=== PATIENT | male | born 1990 ===

== ENCOUNTER 2017-11-14 21:43 | Inpatient (IN) | payer MEDICAID ==
[2017-11-15] MEDS ORDERED: Sodium Chloride 0.9% 1,000 ML IV SCH (00:45)
--- NOTE | 2017-11-15 01:17 | ED PDOC ---
HPI: SOB/CHF/COPD Time Seen by Provider: 11/15/17 00:28 Chief Complaint (Nursing): Shortness Of Breath Chief Complaint (Provider): Fever and Shortness of Breath History Per: Patient History/Exam Limitations: no limitations Onset/Duration Of Symptoms: Days (4 days ago) Current Symptoms Are (Timing): Still Present Additional Complaint(s): 27 yo male presents to the ED complaining of fever, cough productive of brown sputum, chest pain with coughing, and shortness of breath, onset of 4 days ago. Patient reports of no know sick contacts or any recent travel, and also reports of non bloody, non bilious vomiting all day today. Patient also reports that he visited [facility] earlier today, but hasn't been able to take the medications prescribed because of all the vomiting he has been experiencing. Past Medical History Reviewed: Historical Data, Nursing Documentation, Vital Signs Vital Signs: Last Vital Signs Temp 101.4 F H 11/15/17 05:11 Pulse 109 H 11/15/17 04:57 Resp 16 11/15/17 04:57 BP 105/55 L 11/15/17 04:57 Pulse Ox 96 11/15/17 04:57 - Medical History PMH: No Chronic Diseases - Surgical History Surgical History: No Surg Hx - Family History Family History: States: Unknown Family Hx - Social History Current smoker - smoking cessation education provided: Yes Ex-Smoker (has not smoked in the last 12 months): No Alcohol: None Drugs: Denies - Immunization History Hx Tetanus Toxoid Vaccination: No Hx Influenza Vaccination: No Hx Pneumococcal Vaccination: No - Home Medications Home Medications: Ambulatory Orders Medication Instructions Recorded Acetaminophen [Tylenol 325mg tab] 650 mg PO Q4 PRN 11/15/17 Ibuprofen [Advil] 400 mg PO Q6 PRN 11/15/17 - Allergies Allergies/Adverse Reactions: Allergies Allergy/AdvReac Type Severity Reaction Status Date / Time No Known Allergies Allergy Verified 11/14/17 22:00 Review of Systems ROS Statement: Except As Marked, All Systems Reviewed And Found Negative Constitutional: Positive for: Fever Cardiovascular: Positive for: Chest Pain (when coughing) Respiratory: Positive for: Cough (productive of brown sputum), Shortness of Breath Gastrointestinal: Positive for: Vomiting. Negative for: Hematemesis Physical Exam - Reviewed Nursing Documentation Reviewed: Yes Vital Signs Reviewed: Yes - Physical Exam Appears: Positive for: Well, Non-toxic, No Acute Distress Head Exam: Positive for: ATRAUMATIC, NORMAL INSPECTION, NORMOCEPHALIC Skin: Positive for: Normal Color, Warm (to touch) Eye Exam: Positive for: EOMI, Normal appearance, PERRL ENT: Positive for: Normal ENT Inspection Neck: Positive for: Normal, Painless ROM, Supple Cardiovascular/Chest: Positive for: Regular Rate, Rhythm. Negative for: Murmur Respiratory: Positive for: Normal Breath Sounds. Negative for: Respiratory Distress Gastrointestinal/Abdominal: Positive for: Normal Exam, Soft. Negative for: Tenderness Back: Positive for: Normal Inspection Extremity: Positive for: Normal ROM. Negative for: Pedal Edema, Deformity Neurologic/Psych: Positive for: Alert, Oriented. Negative for: Motor/Sensory Deficits - Laboratory Results Result Diagrams: 11/15/17 00:57 11/15/17 00:57 - ECG O2 Sat by Pulse Oximetry: 93 (RA) Pulse Ox Interpretation: Normal Medical Decision Making Medical Decision Making: Time: --22:06 Impression: --Influenza vs. Influenza like illness Plan: --Labs --Lactic ACid --chest X-ray --Acetaminophen 975 mg PO --Toradol 30mg IVP --IV fluids --Zofran Reassess Patient's fever still continues to rise despite anti-pyretic. Patient has bandemia and significant PNA on xray. Dr. Whitfield states his census is capped and cannot take any more patients. Dr. Riley agrees to accept patient. Patient meeting sepsis criteria at this time. Scribe Attestation: Documented by Ralph Degroot acting as a scribe for Blake Mcknight MD. Provider Attestation: All medical record entries made by the Scribe were at my direction and personally dictated by me. I have reviewed the chart and agree that the record accurately reflects my personal performance of the history, physical exam, medical decision making, and the department course for this patient. I have also personally directed, reviewed, and agree with the discharge instructions and disposition. Disposition - Clinical Impression Clinical Impression: Pneumonia, Sepsis - Disposition Disposition Time: 05:00 Condition: SERIOUS
[2017-11-15] MEDS ORDERED: cefTRIAXone 2 GM in Sodium Chloride 0.9% 100 ML IVPB STA (01:30)
[2017-11-15] MEDS ORDERED: Azithromycin 500 MG in Sodium Chloride 0.9% 250 ML IVPB STA (01:30)
[2017-11-15 01:37] LABS: BASO % 0.3 % (0.0-2.0); HEMOGLOBIN 14.6 g/dL (12.0-18.0); LYMPH # 1.1 K/uL (1.0-4.3); LYMPH % 9.5 % (20.0-40.0); MEAN CELL VOLUME 83.5 fl (80.0-94.0); MEAN CORPUSCULAR HEMOGLOBIN 27.8 pg (27.0-31.0); MEAN CORPUSCULAR HGB CONC 33.3 g/dL (33.0-37.0); MEAN PLATELET VOLUME 8.1 fl (7.2-11.7); MONO # 0.4 K/uL (0.0-0.8); MONO % 3.8 % (0.0-10.0); NEUT # 9.9 K/uL (1.8-7.0); NEUT % 86.4 % (50.0-75.0); NRBC % 0.2 % (0.0-0.0); PLATELET COUNT 205 K/uL (130-400); RBC 5.24 Mil/uL (4.40-5.90); RED CELL DISTRIBUTION WIDTH 12.7 % (11.5-14.5); WHITE BLOOD COUNT 11.5 K/uL (4.8-10.8)
[2017-11-15 01:49] LABS: BLOOD UREA NITROGEN 11 mg/dl (9-20); CALCIUM 8.5 mg/dL (8.4-10.2); GFR AFRICAN-AMERICAN > 60; GFR NON-AFRICAN AMERICAN > 60
[2017-11-15 04:24] LABS: ANISOCYTOSIS SLIGHT; BANDS 15 % (0-2); LYMPHOCYTE 13 % (20-50); MONOCYTE 3 % (0-10); NEUTROPHIL 67 % (42-75); OVALOCYTES SLIGHT; PLATELET ESTIMATE NORMAL (NORMAL); REACTIVE LYMPHOCYTES 2 % (0-0); TOTAL CELLS COUNTED 100
[2017-11-15 04:25] LABS: TEARDROP CELLS SLIGHT
[2017-11-15] MEDS ORDERED: Sodium Chloride 0.9% 1,000 ML IV STA (04:33)
[2017-11-15] MEDS ORDERED: Lactated Ringer's 1,000 ML IV SCH (04:45)
[2017-11-15 05:15] LABS: VENOUS BLOOD GAS BASE EXCESS 1.7 mmol/L (0.0-2.0); VENOUS BLOOD GAS PCO2 32 mmHg (40-60); VENOUS BLOOD GAS PO2 41 mm/Hg (30-55); VENOUS BLOOD PH 7.49 (7.32-7.43)
--- NOTE | 2017-11-15 06:26 | CP.PCM.HP ---
History of Present Illness - History of Present Illness History of Present Illness: PMD: None Chief [id number]: Fever/Cough HPI: 27 years old male with no significant medical hx comes with 5 days of Fever , Coughing with Purulent brownish sputum and chest pain, SOB along with nausea and vomiting body aches and poor appetite. He was seen at the [facility] ED one say before this admission but was not able to take the medication prescribed because of the vomiting. In the ED his Temperature was 103F. PMH: No chronic disease PSH: No Surg Hx SH: Smokes 1/2 PPD; No ETOH; Uses [employer]; works in a [employer]; Live with the Family. Allergies: NKDA Medication: Reviwed Present on Admission - Present on Admission Any Indicators Present on Admission: No History of DVT/PE: No History of Uncontrolled Diabetes: No Urinary Catheter: No Decubitus Ulcer Present: No Review of Systems - Constitutional Constitutional: Anorexia, Chills, Fatigue, Fever, Weakness - EENT Eyes: absent: Diplopia, Floaters, Requires Corrective Lenses, Sees Flashes Ears: absent: Decreased Hearing, Ear Discharge, Ear Pain, Tinnitus Nose/Mouth/Throat: absent: Epistaxis, Nasal Congestion, Nasal Discharge, Sinus Pain, Sinus Pressure - Cardiovascular Cardiovascular: Chest Pain, Dyspnea. absent: Leg Edema - Respiratory Respiratory: Cough, Dyspnea, Chest Congestion. absent: Hemoptysis, Wheezing - Gastrointestinal Gastrointestinal: Nausea, Vomiting. absent: Abdominal Pain, Constipation, Diarrhea - Genitourinary Genitourinary: absent: Dysuria, Flank Pain, Hematuria, Urinary Frequency - Musculoskeletal Musculoskeletal: absent: Abnormal Gait, Back Pain, Neck Pain - Integumentary Integumentary: absent: Pruritus, Rash, Skin Ulcer, Sores, Striae, Swelling - Neurological Neurological: Weakness. absent: Confusion, Dizziness, Focal Weakness, Headaches - Psychiatric Psychiatric: absent: Anxiety, Depression, Panic Attacks - Endocrine Endocrine: absent: Palpitations, Polydipsia, Polyphagia, Polyuria - Hematologic/Lymphatic Hematologic: absent: Easy Bleeding, Easy Bruising Past Patient History - Past Medical History & Family History Past Medical History?: No - Past Social History Smoking Status: Heavy Smoker > 10 Cigarettes Daily Chewing Tobacco Use: No Cigar Use: No Alcohol: None Drugs: Cannabis Home Situation {Lives}: With Family - CARDIAC Hx Cardiac Disorders: No - PULMONARY Hx Respiratory Disorders: No - NEUROLOGICAL Hx Neurological Disorder: No - HEENT Hx HEENT Problems: No - RENAL Hx Chronic Kidney Disease: No - ENDOCRINE/METABOLIC Hx Endocrine Disorders: No - HEMATOLOGICAL/ONCOLOGICAL Hx Blood Disorders: No - INTEGUMENTARY Hx Dermatological Problems: No - MUSCULOSKELETAL/RHEUMATOLOGICAL Hx Musculoskeletal Disorders: No - GASTROINTESTINAL Hx Gastrointestinal Disorders: No - GENITOURINARY/GYNECOLOGICAL Hx Genitourinary Disorders: No - PSYCHIATRIC Hx Psychophysiologic Disorder: No Hx Substance Use: No - SURGICAL HISTORY Hx Surgeries: No - ANESTHESIA Hx Anesthesia: No Meds Allergies/Adverse Reactions: Allergies Allergy/AdvReac Type Severity Reaction Status Date / Time No Known Allergies Allergy Verified 11/14/17 22:00 Physical Exam - Constitutional Appears: No Acute Distress - Head Exam Head Exam: ATRAUMATIC, NORMAL INSPECTION, NORMOCEPHALIC - Eye Exam Eye Exam: EOMI, Normal appearance Pupil Exam: NORMAL ACCOMODATION, PERRL - ENT Exam ENT Exam: Mucous Membranes Moist, Normal Exam, Normal External Ear Exam - Neck Exam Neck exam: Positive for: Full Rom, Normal Inspection. Negative for: Lymphadenopathy, Tenderness - Respiratory Exam Additional comments: Rales in left lung base and minimal at right base. Tubular breath sound at upper right lung No wheezes nor rhonchi - Cardiovascular Exam Cardiovascular Exam: REGULAR RHYTHM, RRR, +S1, +S2. absent: Gallop, JVD - GI/Abdominal Exam GI & Abdominal Exam: Normal Bowel Sounds, Soft. absent: Mass, Organomegaly, Tenderness - Rectal Exam Rectal Exam: Deferred - Extremities Exam Extremities exam: Positive for: full ROM, normal inspection. Negative for: calf tenderness, pedal edema - Back Exam Back exam: NORMAL INSPECTION. absent: CVA tenderness (R) - Neurological Exam Neurological exam: Alert, CN II-XII Intact, Oriented x3, Reflexes Normal - Psychiatric Exam Psychiatric exam: Normal Affect, Normal Mood - Skin Skin Exam: Dry, Intact, Normal Color, Warm Results - Vital Signs Recent Vital Signs: Last Vital Signs Temp 100.3 F H 11/15/17 06:21 Pulse 109 H 11/15/17 04:57 Resp 16 11/15/17 04:57 BP 105/55 L 11/15/17 04:57 Pulse Ox 93 L 11/15/17 06:24 - Labs Result Diagrams: 11/15/17 00:57 11/15/17 00:57 Labs: Laboratory Results - last 24 hr 11/15/17 11/15/17 11/15/17 00:57 00:57 01:10 WBC 11.5 H RBC 5.24 Hgb 14.6 Hct 43.8 MCV 83.5 MCH 27.8 MCHC 33.3 RDW 12.7 Plt Count 205 MPV 8.1 Neut % (Auto) 86.4 H Lymph % (Auto) 9.5 L [place] % (Auto) 3.8 Eos % (Auto) 0.0 Baso % (Auto) 0.3 Neut # (Auto) 9.9 H Lymph # (Auto) 1.1 [place] # (Auto) 0.4 Eos # (Auto) 0.0 Baso # (Auto) 0.0 Neutrophils % (Manual) 67 Band Neutrophils % 15 H* Lymphocytes % (Manual) 13 L Reactive Lymphs % 2 H Monocytes % (Manual) 3 Platelet Estimate Normal Anisocytosis (manual) Slight Tear Drop Cells Slight Ovalocytes Slight pO2 VBG pH VBG pCO2 VBG HCO3 VBG Total CO2 VBG O2 Sat (Calc) VBG Base Excess VBG Potassium Glucose Lactate FiO2 Sodium 138 Potassium 3.7 Chloride 101 Carbon Dioxide 26 Anion Gap 15 BUN 11 Creatinine 0.8 Est GFR ( Amer) > 60 Est GFR (Non-Af Amer) > 60 Random Glucose 98 Lactic Acid 1.2 Calcium 8.5 Venous Blood Potassium 11/15/17 05:10 WBC RBC Hgb Hct MCV MCH MCHC RDW Plt Count MPV Neut % (Auto) Lymph % (Auto) [place] % (Auto) Eos % (Auto) Baso % (Auto) Neut # (Auto) Lymph # (Auto) [place] # (Auto) Eos # (Auto) Baso # (Auto) Neutrophils % (Manual) Band Neutrophils % Lymphocytes % (Manual) Reactive Lymphs % Monocytes % (Manual) Platelet Estimate Anisocytosis (manual) Tear Drop Cells Ovalocytes pO2 41 VBG pH 7.49 H VBG pCO2 32 L VBG HCO3 25.8 VBG Total CO2 25.4 VBG O2 Sat (Calc) 87.5 H VBG Base Excess 1.7 VBG Potassium 3.4 L Glucose 143 H Lactate 1.5 FiO2 21.0 Sodium 133.0 Potassium Chloride 102.0 Carbon Dioxide Anion Gap BUN Creatinine Est GFR ( Amer) Est GFR (Non-Af Amer) Random Glucose Lactic Acid Calcium Venous Blood Potassium 3.4 L - Imaging and Cardiology Chest x-ray Status: Image reviewed by me Additional comment: Right upper lung mass in form of a ball Right cardiophrenic infiltrate Assessment & Plan - Assessment and Plan (Free Text) Assessment: #. Pneumonia #. Sepsis Plan: 27 years old male comes with 5 days of Fever, Coughing with Purulent brownish sputum and chest pain, SOB along with nausea and vomiting body aches and poor appetite. In the ED his Temperature was 103F. #. Pneumonia with an acute unset. CAP. TB less likely because of the severity of the symptoms acutely, Aspergillious more likely because of the Fungal Ball picture. - Consult Dr Hillman Pulmonary - CT of Chest with contrast - Sputun for C&S - Sputum For AFB x3 - Airborne Isolation until 3 AFB are negative - ESR - HIV a/b antibody - Quantiferon Gold - Azithromycin - Ceftriaxone #. Sepsis with Fever/Tachycardia/Left shift - Follow Blood Culture;Sputum cultures - Antibiotics #. DVT prophylaxis with Lovenox #. Code Status: Full - Date & Time Date: 11/15/17 Time: 06:26
[2017-11-15] MEDS ORDERED: Sodium Chloride 3% for Inhalation 4 ML VIAL.NEB IH PRN (07:24)
[2017-11-15] MEDS ORDERED: Sodium Chloride 0.9% 50 ML IV ONE (08:23)
[2017-11-15] MEDS ORDERED: Iohexol 300 100 ML IJ ONE (08:23)
--- NOTE | 2017-11-15 09:42 | RAD ---
HISTORY: r/o PNA COMPARISON: No prior. TECHNIQUE: Chest PA and lateral FINDINGS: LUNGS: Rounded opacity seen in the right upper lobe as well as right medial lung base and possibly left lower lobe. Findings most likely represent multifocal pneumonia. PLEURA: No significant pleural effusion identified. No pneumothorax apparent. CARDIOVASCULAR: Normal. OSSEOUS STRUCTURES: No significant abnormalities. VISUALIZED UPPER ABDOMEN: Normal. OTHER FINDINGS: None. IMPRESSION: Findings most consistent with multifocal pneumonia.
--- NOTE | 2017-11-15 10:19 | CT ---
PROCEDURE: CT chest dated 11/15/2017 HISTORY: Mass at right upper lung COMPARISON: Correlation made with concurrent chest radiograph 11/15/2017 at 0118 hours. TECHNIQUE: Contiguous axial images were obtained through the chest with intravenous contrast enhancement. Sagittal and coronal reconstructions were performed. IV contrast: 95 cc Omnipaque 300 contrast Radiation dose (DLP): 743.40 mGy-cm. This CT exam was performed using one or more of the following dose reduction techniques: Automated exposure control, adjustment of the mA and/or kV according to patient size, and/or use of iterative reconstruction technique. FINDINGS: LUNGS: Dense consolidation/infiltrate with air bronchograms seen in the right posterior lower lung field as well as right upper lobe. Smaller infiltrate changes seen in the left lung base and to a lesser degree right middle lobe. MEDIASTINUM: Heart size is upper limits of normal/borderline enlarged. No significant pericardial effusion. Several small to medium-sized mediastinal lymph nodes are present in the prevascular and paratracheal/pretracheal and subcarinal regions. . Central airways are midline and patent. No central endobronchial lesions. PLEURA: No pleural fluid. No pneumothorax. BONES: No fracture. No destructive lesion. UPPER ABDOMEN: Spleen is mildly enlarged measuring approximately 13.4 cm in AP dimension. The visualized along its inferior border though does appear borderline/mildly enlarged. OTHER FINDINGS: None. IMPRESSION: Dense consolidation/ upper lobe infiltrate seen in the right lower lobe, right upper lobe. There is a small infiltrate seen in the left lung base and early small infiltrate changes right middle lobe. Mild splenomegaly. Borderline/mild hepatomegaly.
[2017-11-15] MEDS: Potassium Chloride 10 MEQ in Dextrose 5%/0.9% NS 1,000 ML IV SCH ×2 (10:43→22:29)
[2017-11-15] MEDS: Enoxaparin 40 mg Syringe SC SCH (10:51)
[2017-11-15 11:46] LABS: BASO % 0.1 % (0.0-2.0); HEMOGLOBIN 13.5 g/dL (12.0-18.0); LYMPH % 10.7 % (20.0-40.0); MEAN CORPUSCULAR HEMOGLOBIN 28.2 pg (27.0-31.0); MEAN CORPUSCULAR HGB CONC 34.4 g/dL (33.0-37.0); MEAN PLATELET VOLUME 7.9 fl (7.2-11.7); MONO # 0.2 K/uL (0.0-0.8); MONO % 2.5 % (0.0-10.0); NEUT # 7.9 K/uL (1.8-7.0); NEUT % 86.7 % (50.0-75.0); NRBC % 0.1 % (0.0-0.0); RBC 4.8 Mil/uL (4.40-5.90); RED CELL DISTRIBUTION WIDTH 12.6 % (11.5-14.5); WHITE BLOOD COUNT 9.2 K/uL (4.8-10.8)
[2017-11-15 12:18] LABS: ALBUMIN 3.4 g/dL (3.5-5.0); ALT/SGPT 26 U/L (21-72); AST/SGOT 27 U/L (17-59); BLOOD UREA NITROGEN 10 mg/dl (9-20); CALCIUM 8.1 mg/dL (8.4-10.2); GFR AFRICAN-AMERICAN > 60; GFR NON-AFRICAN AMERICAN > 60
--- NOTE | 2017-11-15 12:51 | CP.PCM.PN ---
<Tyrone Bronson - Last Filed: 11/15/17 15:29> Subjective - Date & Time of Evaluation Date of Evaluation: 11/15/17 Time of Evaluation: 10:00 - Subjective Subjective: 27 y/o evaluated and examined by bedside. Pt reports feeling better, cough has decreased in frequency, aggravates with deep inspirations but still productive with brown sputum. Pt is hungry and desires to eat. 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 Objective - Vital Signs/Intake and Output Vital Signs (last 24 hours): Temp Pulse Resp BP Pulse Ox 99.8 F H 100 H 24 106/66 99 11/15/17 12:00 11/15/17 12:25 11/15/17 12:25 11/15/17 12:00 11/15/17 12:00 - Medications Medications: Current Medications Acetaminophen (Tylenol 325mg Tab) 650 mg PO Q4 PRN PRN Reason: Fever >100.4 F Acetaminophen (Tylenol 325mg Tab) 650 mg PO Q4 PRN PRN Reason: Pain, Mild (1-3) Enoxaparin Sodium (Lovenox) 40 mg SC DAILY [facility] PRN Reason: Protocol Last Admin: 11/15/17 10:51 Dose: 40 mg Sodium Chloride (Sodium Chloride 0.9%) 1,000 mls @ 1,000 mls/hr IV .Q1H [facility] Stop: 11/16/17 00:39 Last Admin: 11/15/17 01:02 Dose: 1,000 mls/hr Lactated Ringer's (Lactated Ringer's) 1,000 mls @ 1,000 mls/hr IV .Q1H [facility] Last Admin: 11/15/17 05:24 Dose: 1,000 mls/hr Ceftriaxone Sodium 1 gm/ (Sodium Chloride) 100 mls @ 100 mls/hr IVPB DAILY [facility] PRN Reason: Protocol Azithromycin 500 mg/ Sodium (Chloride) 250 mls @ 250 mls/hr IVPB DAILY [facility] PRN Reason: Protocol Potassium Chloride 10 meq/ (Dextrose/Sodium Chloride) 1,005 mls @ 125 mls/hr IV .Q8H3M [facility] Stop: 11/16/17 07:36 Last Admin: 11/15/17 10:43 Dose: 125 mls/hr Ibuprofen (Motrin Tab) 400 mg PO Q4 PRN PRN Reason: Pain, moderate (4-7) Ondansetron HCl (Zofran Inj) 4 mg IVP Q4 PRN PRN Reason: Nausea/Vomiting - Labs Labs: 11/15/17 11:33 11/15/17 11:33 - Constitutional Appears: Well, No Acute Distress - Head Exam Head Exam: ATRAUMATIC, NORMAL INSPECTION - Eye Exam Eye Exam: EOMI, Normal appearance - ENT Exam ENT Exam: Mucous Membranes Moist - Neck Exam Neck Exam: Full ROM. absent: Meningismus - Respiratory Exam Respiratory Exam: Decreased Breath Sounds (on bilateral lower west. ), NORMAL BREATHING PATTERN Additional comments: Presence of tubular sounds on RUL. - Cardiovascular Exam Cardiovascular Exam: REGULAR RHYTHM, +S1, +S2 - GI/Abdominal Exam GI & Abdominal Exam: Soft, Normal Bowel Sounds. absent: Guarding, Rigid, Tenderness - Neurological Exam Neurological Exam: Alert, Awake, Oriented x3 - Psychiatric Exam Psychiatric exam: Normal Mood Assessment and Plan - Assessment and Plan (Free Text) Assessment: 27 y/o M admitted for evaluation and management of multifocal pneumonia. Plan: 1. Acute pneumonia. - CAP, TB less likely, possible Aspergillious. - CT Chest showed dense consolidation in RUL and infiltrate in RLL, small infiltrate on LLL, and splenomegaly. - CXR findings more consistent with multifocal pneumonia. - Consult to Pulmonology, Dr Hillman. - Sputum For AFB x3 - Airborne Isolation until 3 AFB are negative - On IV Ceftriaxone and Azithromycin. - F/U ESR, HIV antibody, Quantiferon Gold, Blood CX, Aspergillus Ab. - F/U pulmonology recommendations. 2. Sepsis with Fever/Tachycardia/Left shift - F/u Blood Culture and Sputum cultures - On Ceftrixone and Azithromycin. - Monitor Vital signs 3. DVT prophylaxis - Lovenox SC, daily <Camilo Contreras - Last Filed: 11/15/17 15:53> Objective - Vital Signs/Intake and Output Vital Signs (last 24 hours): Temp Pulse Resp BP Pulse Ox 99.8 F H 110 H 20 106/66 99 11/15/17 12:00 11/15/17 13:00 11/15/17 13:00 11/15/17 13:00 11/15/17 13:00 - Medications Medications: Current Medications Acetaminophen (Tylenol 325mg Tab) 650 mg PO Q4 PRN PRN Reason: Fever >100.4 F Acetaminophen (Tylenol 325mg Tab) 650 mg PO Q4 PRN PRN Reason: Pain, Mild (1-3) Enoxaparin Sodium (Lovenox) 40 mg SC DAILY [facility] PRN Reason: Protocol Last Admin: 11/15/17 10:51 Dose: 40 mg Sodium Chloride (Sodium Chloride 0.9%) 1,000 mls @ 1,000 mls/hr IV .Q1H [facility] Stop: 11/16/17 00:39 Last Admin: 11/15/17 01:02 Dose: 1,000 mls/hr Lactated Ringer's (Lactated Ringer's) 1,000 mls @ 1,000 mls/hr IV .Q1H [facility] Last Admin: 11/15/17 05:24 Dose: 1,000 mls/hr Ceftriaxone Sodium 1 gm/ (Sodium Chloride) 100 mls @ 100 mls/hr IVPB DAILY [facility] PRN Reason: Protocol Azithromycin 500 mg/ Sodium (Chloride) 250 mls @ 250 mls/hr IVPB DAILY [facility] PRN Reason: Protocol Potassium Chloride 10 meq/ (Dextrose/Sodium Chloride) 1,005 mls @ 125 mls/hr IV .Q8H3M [facility] Stop: 11/16/17 07:36 Last Admin: 11/15/17 10:43 Dose: 125 mls/hr Ibuprofen (Motrin Tab) 400 mg PO Q4 PRN PRN Reason: Pain, moderate (4-7) Ondansetron HCl (Zofran Inj) 4 mg IVP Q4 PRN PRN Reason: Nausea/Vomiting - Labs Labs: 11/15/17 11:33 11/15/17 11:33 Assessment and Plan - Assessment and Plan (Free Text) Assessment: ATTENDING ATTESTATION: Patient was seen and examined. I discussed the case with the resident and agree with the findings and plan as documented in the residents note.
[2017-11-15] MEDS ORDERED: Tuberculin 5 Units/0.1 ml Inj ID ONE (15:00)
--- NOTE | 2017-11-15 18:59 | CP.PCM.CON ---
History of Present Illness - History of Present Illness History of Present Illness: CC PNA. Pulmonary consult. 27 y[facility] M[facility] of moderate SOB for 4 days [employer] increased on DOA with no relief and associated to cough with productive brownish phlegms, fever and chills. In ER TMAx 103.0 F. Worsening symptoms: GARIBAY, CP pain with coughing, moderate intensity 8:10, nausea , vomiting. Pt stated He went to [facility] earlier with same symptoms and after been discharged did not get any medication 2nd to nausea and vomiting. Aggravated symptom: As per PT, Son is sick with the Flu and is Ill with chills and body aches, reported that will follow the flu swab sat. Pt denied: CP, Palpitations, LOC, dizziness, abdominal pain, diarrhea, urinary symptoms, recent travel out of [facility]. Pt has no Chronic PMHx. CXR showed: Multiple focal PNA. CT Chest: Infiltrated RUL, RLL. Review of Systems - Constitutional Constitutional: Chills, Fever - EENT Eyes: Other (negative) Ears: Other (negative) Nose/Mouth/Throat: Other (negative) - Cardiovascular Cardiovascular: Other (CP with coughing) - Respiratory Respiratory: Cough, Dyspnea, Dyspnea on Exertion, Pain on Inspiration, Chest Congestion, Change in Mucous Color - Gastrointestinal Gastrointestinal: Nausea, Vomiting - Genitourinary Genitourinary: Other (negative) - Musculoskeletal Musculoskeletal: Other (negative) - Integumentary Integumentary: Other (negative) - Neurological Neurological: Other (negative) - Psychiatric Psychiatric: Other (negative) - Endocrine Endocrine: Other (negative) - Hematologic/Lymphatic Hematologic: Other (negative) Past Patient History - Past Medical History & Family History Past Medical History?: No Pertinent Family History: Unknown - Past Social History Smoking Status: Light Smoker < 10 Cigarettes Daily Alcohol: None Drugs: Cannabis - CARDIAC Hx Cardiac Disorders: No - PULMONARY Hx Respiratory Disorders: No - NEUROLOGICAL Hx Neurological Disorder: No - HEENT Hx HEENT Problems: No - RENAL Hx Chronic Kidney Disease: No - ENDOCRINE/METABOLIC Hx Endocrine Disorders: No - HEMATOLOGICAL/ONCOLOGICAL Hx Blood Disorders: No - INTEGUMENTARY Hx Dermatological Problems: No - MUSCULOSKELETAL/RHEUMATOLOGICAL Hx Musculoskeletal Disorders: No - GASTROINTESTINAL Hx Gastrointestinal Disorders: No - GENITOURINARY/GYNECOLOGICAL Hx Genitourinary Disorders: No - PSYCHIATRIC Hx Psychophysiologic Disorder: No - SURGICAL HISTORY Hx Surgeries: No - ANESTHESIA Hx Anesthesia: No Meds Allergies/Adverse Reactions: Allergies Allergy/AdvReac Type Severity Reaction Status Date / Time No Known Allergies Allergy Verified 11/14/17 22:00 - Medications Medications: Current Medications Acetaminophen (Tylenol 325mg Tab) 650 mg PO Q4 PRN PRN Reason: Fever >100.4 F Acetaminophen (Tylenol 325mg Tab) 650 mg PO Q4 PRN PRN Reason: Pain, Mild (1-3) Enoxaparin Sodium (Lovenox) 40 mg SC DAILY [facility] PRN Reason: Protocol Last Admin: 11/15/17 10:51 Dose: 40 mg Sodium Chloride (Sodium Chloride 0.9%) 1,000 mls @ 1,000 mls/hr IV .Q1H [facility] Stop: 11/16/17 00:39 Last Admin: 11/15/17 01:02 Dose: 1,000 mls/hr Lactated Ringer's (Lactated Ringer's) 1,000 mls @ 1,000 mls/hr IV .Q1H [facility] Last Admin: 11/15/17 05:24 Dose: 1,000 mls/hr Ceftriaxone Sodium 1 gm/ (Sodium Chloride) 100 mls @ 100 mls/hr IVPB DAILY [facility] PRN Reason: Protocol Azithromycin 500 mg/ Sodium (Chloride) 250 mls @ 250 mls/hr IVPB DAILY [facility] PRN Reason: Protocol Potassium Chloride 10 meq/ (Dextrose/Sodium Chloride) 1,005 mls @ 125 mls/hr IV .Q8H3M [facility] Stop: 11/16/17 07:36 Last Admin: 11/15/17 10:43 Dose: 125 mls/hr Ibuprofen (Motrin Tab) 400 mg PO Q4 PRN PRN Reason: Pain, moderate (4-7) Ondansetron HCl (Zofran Inj) 4 mg IVP Q4 PRN PRN Reason: Nausea/Vomiting Physical Exam - Constitutional Appears: No Acute Distress - Head Exam Head Exam: NORMAL INSPECTION - Eye Exam Eye Exam: PERRL - ENT Exam ENT Exam: Normal Exam - Neck Exam Neck exam: Positive for: Normal Inspection - Respiratory Exam Respiratory Exam: Decreased Breath Sounds (b/l) - Cardiovascular Exam Cardiovascular Exam: REGULAR RHYTHM - GI/Abdominal Exam GI & Abdominal Exam: Normal Bowel Sounds, Soft - Extremities Exam Extremities exam: Positive for: normal inspection - Back Exam Back exam: NORMAL INSPECTION - Neurological Exam Neurological exam: Alert, Oriented x3 Additional comments: No motor sensory deficit - Psychiatric Exam Psychiatric exam: Normal Affect, Normal Mood - Skin Skin Exam: Normal Color, Warm Results - Vital Signs Recent Vital Signs: Last Vital Signs Temp 100 F H 11/15/17 16:43 Pulse 100 H 11/15/17 16:43 Resp 30 H 11/15/17 16:43 BP 157/76 H 11/15/17 16:43 Pulse Ox 96 11/15/17 16:43 reviewed Omar - Labs Result Diagrams: 11/15/17 11:33 11/15/17 11:33 Labs: Laboratory Results - last 24 hr 11/15/17 11/15/17 11/15/17 00:57 00:57 01:10 WBC 11.5 H RBC 5.24 Hgb 14.6 Hct 43.8 MCV 83.5 MCH 27.8 MCHC 33.3 RDW 12.7 Plt Count 205 MPV 8.1 Neut % (Auto) 86.4 H Lymph % (Auto) 9.5 L [place] % (Auto) 3.8 Eos % (Auto) 0.0 Baso % (Auto) 0.3 Neut # (Auto) 9.9 H Lymph # (Auto) 1.1 [place] # (Auto) 0.4 Eos # (Auto) 0.0 Baso # (Auto) 0.0 Neutrophils % (Manual) 67 Band Neutrophils % 15 H* Lymphocytes % (Manual) 13 L Reactive Lymphs % 2 H Monocytes % (Manual) 3 Platelet Estimate Normal Anisocytosis (manual) Slight Tear Drop Cells Slight Ovalocytes Slight pO2 VBG pH VBG pCO2 VBG HCO3 VBG Total CO2 VBG O2 Sat (Calc) VBG Base Excess VBG Potassium Glucose Lactate FiO2 Sodium 138 Potassium 3.7 Chloride 101 Carbon Dioxide 26 Anion Gap 15 BUN 11 Creatinine 0.8 Est GFR ( Amer) > 60 Est GFR (Non-Af Amer) > 60 Random Glucose 98 Lactic Acid 1.2 Calcium 8.5 Total Bilirubin AST ALT Alkaline Phosphatase Total Protein Albumin Globulin Albumin/Globulin Ratio Venous Blood Potassium HIV 1&2 Antibody Screen Influenza Typ A,B (EIA) 11/15/17 11/15/17 11/15/17 05:10 11:33 11:33 WBC 9.2 RBC 4.80 Hgb 13.5 Hct 39.3 MCV 82.0 MCH 28.2 MCHC 34.4 RDW 12.6 Plt Count 187 MPV 7.9 Neut % (Auto) 86.7 H Lymph % (Auto) 10.7 L [place] % (Auto) 2.5 Eos % (Auto) 0.0 Baso % (Auto) 0.1 Neut # (Auto) 7.9 H Lymph # (Auto) 1.0 [place] # (Auto) 0.2 Eos # (Auto) 0.0 Baso # (Auto) 0.0 Neutrophils % (Manual) Band Neutrophils % Lymphocytes % (Manual) Reactive Lymphs % Monocytes % (Manual) Platelet Estimate Anisocytosis (manual) Tear Drop Cells Ovalocytes pO2 41 VBG pH 7.49 H VBG pCO2 32 L VBG HCO3 25.8 VBG Total CO2 25.4 VBG O2 Sat (Calc) 87.5 H VBG Base Excess 1.7 VBG Potassium 3.4 L Glucose 143 H Lactate 1.5 FiO2 21.0 Sodium 133.0 138 Potassium 3.3 L Chloride 102.0 103 Carbon Dioxide 25 Anion Gap 13 BUN 10 Creatinine 0.6 L Est GFR ( Amer) > 60 Est GFR (Non-Af Amer) > 60 Random Glucose 185 H Lactic Acid Calcium 8.1 L Total Bilirubin 0.5 AST 27 ALT 26 Alkaline Phosphatase 63 Total Protein 6.6 Albumin 3.4 L Globulin 3.2 Albumin/Globulin Ratio 1.0 Venous Blood Potassium 3.4 L HIV 1&2 Antibody Screen Influenza Typ A,B (EIA) 11/15/17 11/15/17 11:33 14:57 WBC RBC Hgb Hct MCV MCH MCHC RDW Plt Count MPV Neut % (Auto) Lymph % (Auto) [place] % (Auto) Eos % (Auto) Baso % (Auto) Neut # (Auto) Lymph # (Auto) [place] # (Auto) Eos # (Auto) Baso # (Auto) Neutrophils % (Manual) Band Neutrophils % Lymphocytes % (Manual) Reactive Lymphs % Monocytes % (Manual) Platelet Estimate Anisocytosis (manual) Tear Drop Cells Ovalocytes pO2 VBG pH VBG pCO2 VBG HCO3 VBG Total CO2 VBG O2 Sat (Calc) VBG Base Excess VBG Potassium Glucose Lactate FiO2 Sodium Potassium Chloride Carbon Dioxide Anion Gap BUN Creatinine Est GFR ( Amer) Est GFR (Non-Af Amer) Random Glucose Lactic Acid Calcium Total Bilirubin AST ALT Alkaline Phosphatase Total Protein Albumin Globulin Albumin/Globulin Ratio Venous Blood Potassium HIV 1&2 Antibody Screen Negative Influenza Typ A,B (EIA) Negative for flu a/b reviewed [facility] - Imaging and Cardiology Chest x-ray Status: Report reviewed by me (Omar) CT scan - chest Status: Report reviewed by me (Omar) Assessment & Plan (1) Multifocal pneumonia Status: Acute Priority: High - Assessment and Plan (Free Text) Plan: F/U Sputum C-S, AFB, Blood C-S, Influenza test result. Agree with Zithromax , Rocephin. - Date & Time Date: 11/15/17 Time: 11:10
[2017-11-16] MEDS: Azithromycin 500 MG in Sodium Chloride 0.9% 250 ML IVPB SCH ×2 (00:10→08:47)
[2017-11-16 05:34] LABS: HEMOGLOBIN 13.6 g/dL (12.0-18.0); MEAN CELL VOLUME 83.1 fl (80.0-94.0); MEAN CORPUSCULAR HEMOGLOBIN 28.3 pg (27.0-31.0); RBC 4.8 Mil/uL (4.40-5.90); RED CELL DISTRIBUTION WIDTH 12.6 % (11.5-14.5); WHITE BLOOD COUNT 8.2 K/uL (4.8-10.8)
[2017-11-16 05:45] LABS: BLOOD UREA NITROGEN 8 mg/dl (9-20); CALCIUM 8.2 mg/dL (8.4-10.2); GFR AFRICAN-AMERICAN > 60; GFR NON-AFRICAN AMERICAN > 60
[2017-11-16] MEDS ORDERED: Potassium Chloride 20 mEq ER Tab PO ONE (06:08)
[2017-11-16] MEDS: Enoxaparin 40 mg Syringe SC SCH (08:45)
--- NOTE | 2017-11-16 10:21 | CP.PCM.PN ---
<Ben Donahue - Last Filed: 11/16/17 15:08> Subjective - Date & Time of Evaluation Date of Evaluation: 11/16/17 Time of Evaluation: 07:45 - Subjective Subjective: Pt seen and examined at bedside. Airborn precautions and currently in isolation. Pt reports significant improvement in symptoms. Resolved coughing and SOB. Denies subjective fever, or productuve sputum, COLLADO/CP/N/V. Reports diaphoresis after awakening this AM. Objective - Vital Signs/Intake and Output Vital Signs (last 24 hours): Temp Pulse Resp BP Pulse Ox 98.4 F 89 23 124/72 97 11/16/17 08:20 11/16/17 08:20 11/16/17 08:20 11/16/17 08:20 11/16/17 08:20 Intake and Output: 11/16/17 11/16/17 06:59 18:59 Intake Total 1700 600 Output Total 1800 800 Balance -100 -200 - Medications Medications: Current Medications Acetaminophen (Tylenol 325mg Tab) 650 mg PO Q4 PRN PRN Reason: Fever >100.4 F Last Admin: 11/16/17 00:09 Dose: 650 mg Acetaminophen (Tylenol 325mg Tab) 650 mg PO Q4 PRN PRN Reason: Pain, Mild (1-3) Enoxaparin Sodium (Lovenox) 40 mg SC DAILY [facility] PRN Reason: Protocol Last Admin: 11/16/17 08:45 Dose: 40 mg Lactated Ringer's (Lactated Ringer's) 1,000 mls @ 1,000 mls/hr IV .Q1H [facility] Last Admin: 11/15/17 05:24 Dose: 1,000 mls/hr Ceftriaxone Sodium 1 gm/ (Sodium Chloride) 100 mls @ 100 mls/hr IVPB DAILY [facility] PRN Reason: Protocol Last Admin: 11/16/17 08:46 Dose: 100 mls/hr Azithromycin 500 mg/ Sodium (Chloride) 250 mls @ 250 mls/hr IVPB DAILY [facility] PRN Reason: Protocol Last Admin: 11/16/17 08:47 Dose: 250 mls/hr Ibuprofen (Motrin Tab) 400 mg PO Q4 PRN PRN Reason: Pain, moderate (4-7) Ondansetron HCl (Zofran Inj) 4 mg IVP Q4 PRN PRN Reason: Nausea/Vomiting - Labs Labs: 11/16/17 04:35 11/16/17 04:35 - Constitutional Appears: No Acute Distress - Eye Exam Eye Exam: EOMI - ENT Exam ENT Exam: Mucous Membranes Moist - Respiratory Exam Respiratory Exam: Clear to Ausculation Bilateral, NORMAL BREATHING PATTERN. absent: Wheezes - Cardiovascular Exam Cardiovascular Exam: REGULAR RHYTHM, +S1, +S2 - GI/Abdominal Exam GI & Abdominal Exam: Soft, Normal Bowel Sounds. absent: Tenderness - Neurological Exam Neurological Exam: Alert, Awake, CN II-XII Intact, Oriented x3 - Psychiatric Exam Psychiatric exam: Normal Affect, Normal Mood Assessment and Plan - Assessment and Plan (Free Text) Plan: 27 yo M with no significant pmhx admitted for eval and management of multifocal pneumonia. 1. Acute pneumonia - Multifocal: CAP, TB less likely, possible Aspergillious - CT Chest showed dense consolidation in RUL and infiltrate in RLL, small infiltrate on LLL, and splenomegaly. - CXR findings more consistent with multi-focal pneumonia. - Influenza negative - Pulmonology, Dr Hillman: f/u sputum and blood c/s; AFB - Airborne Isolation until 3 AFB are negative - On IV Ceftriaxone 1gm and Azithromycin 500mg. - Blood cx: 11/15/2017 Prelim: no growth after 24 hrs - Sputum For AFB x3; resent 2/2 possible oropharyngeal contamination3 - ESR: 63 H; HIV: neg - F/U: Quantiferon Gold, Blood/Sputum C/S, Aspergillus Ab 2. Sepsis with Fever/Tachycardia/Left shift - F/u Blood Culture and Sputum cultures (Sputum cx possible contamination. Resent) Pending gram stain - On Ceftrixone 1gm and Azithromycin 500mg. - Monitor Vital signs 3. Hypokalemia - Kdur 20 Meq given 11/16/2017 - f/u labs: CMP, Mg 4. DVT prophylaxis - Lovenox 40 mg SC, daily <Camilo Contreras - Last Filed: 11/16/17 15:52> Objective - Vital Signs/Intake and Output Vital Signs (last 24 hours): Temp Pulse Resp BP Pulse Ox 98.5 F 102 H 20 117/92 H 96 11/16/17 12:34 11/16/17 12:34 11/16/17 12:34 11/16/17 12:34 11/16/17 12:34 Intake and Output: 11/16/17 11/16/17 06:59 18:59 Intake Total 1700 850 Output Total 1800 1300 Balance -100 -450 - Medications Medications: Current Medications Acetaminophen (Tylenol 325mg Tab) 650 mg PO Q4 PRN PRN Reason: Fever >100.4 F Last Admin: 11/16/17 00:09 Dose: 650 mg Acetaminophen (Tylenol 325mg Tab) 650 mg PO Q4 PRN PRN Reason: Pain, Mild (1-3) Enoxaparin Sodium (Lovenox) 40 mg SC DAILY [facility] PRN Reason: Protocol Last Admin: 11/16/17 08:45 Dose: 40 mg Lactated Ringer's (Lactated Ringer's) 1,000 mls @ 1,000 mls/hr IV .Q1H [facility] Last Admin: 11/15/17 05:24 Dose: 1,000 mls/hr Ceftriaxone Sodium 1 gm/ (Sodium Chloride) 100 mls @ 100 mls/hr IVPB DAILY [facility] PRN Reason: Protocol Last Admin: 11/16/17 08:46 Dose: 100 mls/hr Azithromycin 500 mg/ Sodium (Chloride) 250 mls @ 250 mls/hr IVPB DAILY [facility] PRN Reason: Protocol Last Admin: 11/16/17 08:47 Dose: 250 mls/hr Potassium Chloride 10 meq/ (Dextrose/Sodium Chloride) 1,005 mls @ 125 mls/hr IV .Q8H3M [facility] Stop: 11/17/17 11:04 Last Admin: 11/16/17 12:27 Dose: 125 mls/hr Ibuprofen (Motrin Tab) 400 mg PO Q4 PRN PRN Reason: Pain, moderate (4-7) Ondansetron HCl (Zofran Inj) 4 mg IVP Q4 PRN PRN Reason: Nausea/Vomiting - Labs Labs: 11/16/17 04:35 11/16/17 04:35 Assessment and Plan - Assessment and Plan (Free Text) Plan: ATTENDING ATTESTATION: Patient was seen and examined. I discussed the case with the resident and agree with the findings and plan as documented in the residents note. Continue to r/o tuberculosis. ESR 63 HIV negative F/u Quantiferon Gold Acid fast sputum cx
[2017-11-16] MEDS: Potassium Chloride 10 MEQ in Dextrose 5%/0.9% NS 1,000 ML IV SCH ×2 (12:27→19:36)
--- NOTE | 2017-11-16 16:37 | CP.PCM.PN ---
Subjective - Date & Time of Evaluation Date of Evaluation: 11/16/17 Time of Evaluation: 09:50 - Subjective Subjective: F/U Multifocal PNA cough improved , no SOB Objective - Vital Signs/Intake and Output Vital Signs (last 24 hours): Temp Pulse Resp BP Pulse Ox 98.7 F 85 20 125/69 97 11/16/17 16:00 11/16/17 16:00 11/16/17 12:34 11/16/17 16:00 11/16/17 16:00 Intake and Output: 11/16/17 11/16/17 06:59 18:59 Intake Total 1700 1300 Output Total 1800 1300 Balance -100 0 - Medications Medications: Current Medications Acetaminophen (Tylenol 325mg Tab) 650 mg PO Q4 PRN PRN Reason: Fever >100.4 F Last Admin: 11/16/17 00:09 Dose: 650 mg Acetaminophen (Tylenol 325mg Tab) 650 mg PO Q4 PRN PRN Reason: Pain, Mild (1-3) Enoxaparin Sodium (Lovenox) 40 mg SC DAILY [facility] PRN Reason: Protocol Last Admin: 11/16/17 08:45 Dose: 40 mg Lactated Ringer's (Lactated Ringer's) 1,000 mls @ 1,000 mls/hr IV .Q1H [facility] Last Admin: 11/15/17 05:24 Dose: 1,000 mls/hr Ceftriaxone Sodium 1 gm/ (Sodium Chloride) 100 mls @ 100 mls/hr IVPB DAILY [facility] PRN Reason: Protocol Last Admin: 11/16/17 08:46 Dose: 100 mls/hr Azithromycin 500 mg/ Sodium (Chloride) 250 mls @ 250 mls/hr IVPB DAILY [facility] PRN Reason: Protocol Last Admin: 11/16/17 08:47 Dose: 250 mls/hr Potassium Chloride 10 meq/ (Dextrose/Sodium Chloride) 1,005 mls @ 125 mls/hr IV .Q8H3M [facility] Stop: 11/17/17 11:04 Last Admin: 11/16/17 12:27 Dose: 125 mls/hr Ibuprofen (Motrin Tab) 400 mg PO Q4 PRN PRN Reason: Pain, moderate (4-7) Ondansetron HCl (Zofran Inj) 4 mg IVP Q4 PRN PRN Reason: Nausea/Vomiting - Labs Labs: 11/16/17 04:35 11/16/17 04:35 - Constitutional Appears: No Acute Distress - Head Exam Head Exam: NORMAL INSPECTION - Eye Exam Eye Exam: PERRL - ENT Exam ENT Exam: Normal Exam - Neck Exam Neck Exam: Normal Inspection - Respiratory Exam Respiratory Exam: Decreased Breath Sounds (b/l) - Cardiovascular Exam Cardiovascular Exam: REGULAR RHYTHM - Extremities Exam Extremities Exam: Normal Inspection - Back Exam Back Exam: NORMAL INSPECTION - Neurological Exam Neurological Exam: Alert, Oriented x3. absent: Motor Sensory Deficit - Psychiatric Exam Psychiatric exam: Normal Affect, Normal Mood - Skin Skin Exam: Normal Color, Warm Assessment and Plan (1) Multifocal pneumonia Status: Acute - Assessment and Plan (Free Text) Plan: sputum for AFB sended to Lab ,continue Zithromax , Ceftriazone and rest of treatment
[2017-11-17 00:12] LABS: TB ANTIGEN MINUS NIL 0.01 IU/mL
[2017-11-17 06:52] LABS: HEMOGLOBIN 15.3 g/dL (12.0-18.0); MEAN CELL VOLUME 82.7 fl (80.0-94.0); MEAN CORPUSCULAR HEMOGLOBIN 29.2 pg (27.0-31.0); MEAN CORPUSCULAR HGB CONC 35.3 g/dL (33.0-37.0); RBC 5.22 Mil/uL (4.40-5.90); RED CELL DISTRIBUTION WIDTH 12.9 % (11.5-14.5); WHITE BLOOD COUNT 8.7 K/uL (4.8-10.8)
[2017-11-17 07:18] LABS: ALB/GLOB RATIO 0.9 (1.0-2.1); ALT/SGPT 47 U/L (21-72); AST/SGOT 51 U/L (17-59); BLOOD UREA NITROGEN 7 mg/dl (9-20); GFR AFRICAN-AMERICAN > 60; GFR NON-AFRICAN AMERICAN > 60; MAGNESIUM 2.4 MG/DL (1.6-2.3)
[2017-11-17] MEDS: Azithromycin 500 MG in Sodium Chloride 0.9% 250 ML IVPB SCH (09:42)
[2017-11-17] MEDS: Enoxaparin 40 mg Syringe SC SCH (09:43)
--- NOTE | 2017-11-17 11:16 | CP.PCM.PN ---
Subjective - Date & Time of Evaluation Date of Evaluation: 11/17/17 Time of Evaluation: 11:00 - Subjective Subjective: Patient seen and examined bedside. Feeling better. With minimal cough, no sputum production. Tmax 99.7 last 24 hours.WBC normalized 8.7 No acute issues overnight saturating 100 % in RA Objective - Vital Signs/Intake and Output Vital Signs (last 24 hours): Temp Pulse Resp BP Pulse Ox 98.3 F 89 18 112/77 96 11/17/17 09:00 11/17/17 09:00 11/17/17 09:00 11/17/17 09:00 11/17/17 09:00 Intake and Output: 11/17/17 11/17/17 06:59 18:59 Intake Total 500 Output Total 1050 Balance -550 - Medications Medications: Current Medications Acetaminophen (Tylenol 325mg Tab) 650 mg PO Q4 PRN PRN Reason: Fever >100.4 F Last Admin: 11/16/17 00:09 Dose: 650 mg Acetaminophen (Tylenol 325mg Tab) 650 mg PO Q4 PRN PRN Reason: Pain, Mild (1-3) Enoxaparin Sodium (Lovenox) 40 mg SC DAILY [facility] PRN Reason: Protocol Last Admin: 11/17/17 09:43 Dose: 40 mg Lactated Ringer's (Lactated Ringer's) 1,000 mls @ 1,000 mls/hr IV .Q1H [facility] Last Admin: 11/15/17 05:24 Dose: 1,000 mls/hr Ceftriaxone Sodium 1 gm/ (Sodium Chloride) 100 mls @ 100 mls/hr IVPB DAILY [facility] PRN Reason: Protocol Last Admin: 11/17/17 09:32 Dose: 100 mls/hr Azithromycin 500 mg/ Sodium (Chloride) 250 mls @ 250 mls/hr IVPB DAILY [facility] PRN Reason: Protocol Last Admin: 11/17/17 09:42 Dose: 250 mls/hr Ibuprofen (Motrin Tab) 400 mg PO Q4 PRN PRN Reason: Pain, moderate (4-7) Ondansetron HCl (Zofran Inj) 4 mg IVP Q4 PRN PRN Reason: Nausea/Vomiting - Labs Labs: 11/17/17 06:34 11/17/17 06:34 - Constitutional Appears: Non-toxic, No Acute Distress - Head Exam Head Exam: ATRAUMATIC, NORMAL INSPECTION, NORMOCEPHALIC - Eye Exam Eye Exam: EOMI, Normal appearance, PERRL Pupil Exam: NORMAL ACCOMODATION - ENT Exam ENT Exam: Mucous Membranes Moist, Normal Exam - Neck Exam Neck Exam: Full ROM, Normal Inspection - Respiratory Exam Respiratory Exam: Clear to Ausculation Bilateral, NORMAL BREATHING PATTERN. absent: Rales, Rhonchi, Wheezes - Cardiovascular Exam Cardiovascular Exam: REGULAR RHYTHM, RRR, +S1, +S2. absent: JVD - GI/Abdominal Exam GI & Abdominal Exam: Soft, Normal Bowel Sounds. absent: Distended, Guarding, Tenderness, Rebound - Rectal Exam Rectal Exam: Deferred - Extremities Exam Extremities Exam: Full ROM, Normal Capillary Refill, Normal Inspection. absent : Calf Tenderness, Pedal Edema - Back Exam Back Exam: NORMAL INSPECTION - Neurological Exam Neurological Exam: Alert, Awake, CN II-XII Intact, Oriented x3 - Psychiatric Exam Psychiatric exam: Normal Affect, Normal Mood - Skin Skin Exam: Dry, Intact, Normal Color, Warm Assessment and Plan - Assessment and Plan (Free Text) Assessment: 27 years old male with no significant medical hx came with 5 days of Fever, Coughing with Purulent brownish sputum and chest pain, SOB along with nausea and vomiting body aches and poor appetite. He was seen at the [facility] ED one day before this admission but was not able to take the medication prescribed because of the vomiting. In the ED his Temperature was 103F.Ct chest showed multifical pneumonia patient was admitted started on rocephin and Zithromax, pulmonary consulted He was placed pn respiratory isolation to r/o TB even though the findings in CT are less likely for TB. At present doing well, hemodynamically stable, afebrile 1 AFB received by lab so far 1.Multifocal Pneumonia Clinically improving , Tmax 99.7 , WBC 8.7, blood cx with no growth CT Chest showed dense consolidation in RUL and infiltrate in RLL, small infiltrate on LLL, and splenomegaly. HIV negative, Influenza negative, Quantiferon negative Pulmonology, Dr Hillman consulted Continue Airborne Isolation until 3 AFB are negative. Lab has received only 1 AFB so far Continue Rocephin and zithromax Will need to send 2 more AFb today ( 8 hours appart) 2. Sepsis secondary to multifocal pneumonia with Fever/Tachycardia/Left shift blood cx with no growth On Ceftrixone 1gm and Azithromycin 500mg. 3. Hypokalemia replaced 4.DVT prophylaxis Lovenox 40 mg SC, daily
--- NOTE | 2017-11-17 15:37 | CP.PCM.PN ---
Subjective - Date & Time of Evaluation Date of Evaluation: 11/17/17 Time of Evaluation: 14:50 - Subjective Subjective: F/U Multiple PNA ocasional dry cough , afebril Objective - Vital Signs/Intake and Output Vital Signs (last 24 hours): Temp Pulse Resp BP Pulse Ox 98.2 F 94 H 18 122/81 96 11/17/17 13:00 11/17/17 13:00 11/17/17 13:00 11/17/17 13:00 11/17/17 13:00 Intake and Output: 11/17/17 11/17/17 06:59 18:59 Intake Total 500 Output Total 1050 Balance -550 - Medications Medications: Current Medications Acetaminophen (Tylenol 325mg Tab) 650 mg PO Q4 PRN PRN Reason: Fever >100.4 F Last Admin: 11/16/17 00:09 Dose: 650 mg Acetaminophen (Tylenol 325mg Tab) 650 mg PO Q4 PRN PRN Reason: Pain, Mild (1-3) Enoxaparin Sodium (Lovenox) 40 mg SC DAILY [facility] PRN Reason: Protocol Last Admin: 11/17/17 09:43 Dose: 40 mg Lactated Ringer's (Lactated Ringer's) 1,000 mls @ 1,000 mls/hr IV .Q1H [facility] Last Admin: 11/15/17 05:24 Dose: 1,000 mls/hr Ceftriaxone Sodium 1 gm/ (Sodium Chloride) 100 mls @ 100 mls/hr IVPB DAILY [facility] PRN Reason: Protocol Last Admin: 11/17/17 09:32 Dose: 100 mls/hr Azithromycin 500 mg/ Sodium (Chloride) 250 mls @ 250 mls/hr IVPB DAILY [facility] PRN Reason: Protocol Last Admin: 11/17/17 09:42 Dose: 250 mls/hr Ibuprofen (Motrin Tab) 400 mg PO Q4 PRN PRN Reason: Pain, moderate (4-7) Ondansetron HCl (Zofran Inj) 4 mg IVP Q4 PRN PRN Reason: Nausea/Vomiting - Labs Labs: 11/17/17 06:34 11/17/17 06:34 - Constitutional Appears: No Acute Distress - Head Exam Head Exam: NORMAL INSPECTION - Eye Exam Eye Exam: PERRL - ENT Exam ENT Exam: Normal Exam - Neck Exam Neck Exam: Normal Inspection - Respiratory Exam Respiratory Exam: Decreased Breath Sounds (at bases) - Cardiovascular Exam Cardiovascular Exam: REGULAR RHYTHM - GI/Abdominal Exam GI & Abdominal Exam: Soft, Normal Bowel Sounds - Extremities Exam Extremities Exam: Normal Inspection - Back Exam Back Exam: NORMAL INSPECTION - Neurological Exam Neurological Exam: Alert, Oriented x3. absent: Motor Sensory Deficit - Psychiatric Exam Psychiatric exam: Normal Affect, Normal Mood - Skin Skin Exam: Normal Color, Warm Assessment and Plan (1) Multifocal pneumonia Status: Acute - Assessment and Plan (Free Text) Plan: no respiiratory distress, continue Zithromax , Rocephin , one sputum AFB ( neg )
[2017-11-18] MEDS ORDERED: Albuterol-Ipratrop 3 mg / 0.5 (3 ml) UD INH PRN (02:45)
[2017-11-18] MEDS: Enoxaparin 40 mg Syringe SC SCH (09:29)
[2017-11-18] MEDS: Azithromycin 500 MG in Sodium Chloride 0.9% 250 ML IVPB SCH (09:30)
--- NOTE | 2017-11-18 09:59 | CP.PCM.PN ---
Subjective - Date & Time of Evaluation Date of Evaluation: 11/18/17 Time of Evaluation: 09:30 - Subjective Subjective: Patient seen and examined bedside.Complains of feeling SOB with cough and sputum production.No acute issues overnight. Hemodynamically stable, afebrile. Objective - Vital Signs/Intake and Output Vital Signs (last 24 hours): Temp Pulse Resp BP Pulse Ox 98.1 F 92 H 18 112/75 96 11/18/17 08:00 11/18/17 08:00 11/18/17 08:00 11/18/17 08:00 11/18/17 08:00 - Medications Medications: Current Medications Acetaminophen (Tylenol 325mg Tab) 650 mg PO Q4 PRN PRN Reason: Fever >100.4 F Last Admin: 11/16/17 00:09 Dose: 650 mg Acetaminophen (Tylenol 325mg Tab) 650 mg PO Q4 PRN PRN Reason: Pain, Mild (1-3) Albuterol/Ipratropium (Duoneb 3 Mg/0.5 Mg (3 Ml) Ud) 3 ml INH RQ6 PRN PRN Reason: Shortness of Breath Last Admin: 11/18/17 03:15 Dose: 3 ml Enoxaparin Sodium (Lovenox) 40 mg SC DAILY TRICIA PRN Reason: Protocol Last Admin: 11/18/17 09:29 Dose: 40 mg Lactated Ringer's (Lactated Ringer's) 1,000 mls @ 1,000 mls/hr IV .[facility]H [facility] Last Admin: 11/15/17 05:24 Dose: 1,000 mls/hr Ceftriaxone Sodium 1 gm/ (Sodium Chloride) 100 mls @ 100 mls/hr IVPB DAILY TRICIA PRN Reason: Protocol Last Admin: 11/18/17 09:29 Dose: 100 mls/hr Azithromycin 500 mg/ Sodium (Chloride) 250 mls @ 250 mls/hr IVPB DAILY TRICIA PRN Reason: Protocol Last Admin: 11/18/17 09:30 Dose: 250 mls/hr Ibuprofen (Motrin Tab) 400 mg PO Q4 PRN PRN Reason: Pain, moderate (4-7) Ondansetron HCl (Zofran Inj) 4 mg IVP Q4 PRN PRN Reason: Nausea/Vomiting - Labs Labs: 11/17/17 06:34 11/17/17 06:34 - Constitutional Appears: Non-toxic, No Acute Distress - Head Exam Head Exam: ATRAUMATIC, NORMAL INSPECTION, NORMOCEPHALIC - Eye Exam Eye Exam: EOMI, Normal appearance, PERRL Pupil Exam: NORMAL ACCOMODATION - ENT Exam ENT Exam: Mucous Membranes Moist, Normal Exam - Neck Exam Neck Exam: Full ROM, Normal Inspection - Respiratory Exam Respiratory Exam: Clear to Ausculation Bilateral, Rhonchi (left upper hemithorax ), NORMAL BREATHING PATTERN. absent: Rales, Wheezes, Respiratory Distress - Cardiovascular Exam Cardiovascular Exam: REGULAR RHYTHM, RRR, +S1, +S2. absent: JVD - GI/Abdominal Exam GI & Abdominal Exam: Soft, Normal Bowel Sounds. absent: Distended, Guarding, Tenderness, Rebound - Rectal Exam Rectal Exam: Deferred - Extremities Exam Extremities Exam: Full ROM, Normal Capillary Refill, Normal Inspection. absent : Calf Tenderness, Pedal Edema - Back Exam Back Exam: NORMAL INSPECTION - Neurological Exam Neurological Exam: Alert, Awake, CN II-XII Intact, Oriented x3 - Psychiatric Exam Psychiatric exam: Normal Affect, Normal Mood - Skin Skin Exam: Dry, Intact, Normal Color, Warm Assessment and Plan - Assessment and Plan (Free Text) Assessment: 27 years old male with no significant medical hx came with 5 days of Fever, Coughing with Purulent brownish sputum and chest pain, SOB along with nausea and vomiting body aches and poor appetite. He was seen at the [facility] ED one day before this admission but was not able to take the medication prescribed because of the vomiting. In the ED his Temperature was 103F.Ct chest showed multi focal pneumonia Patient was admitted started on rocephin and Zithromax, pulmonary consulted He was placed on respiratory isolation to r/o TB even though the findings in CT are less likely for TB. At present doing well, hemodynamically stable, afebrile 1 AFB negative for AFB . all samples received by lab 1.Multifocal Pneumonia Clinically improving , afebrile , WBC 8.7, blood cx with no growth CT Chest showed dense consolidation in RUL and infiltrate in RLL, small infiltrate on LLL, and splenomegaly. HIV negative, Influenza negative, Quantiferon negative Pulmonology, Dr Hillman consulted Continue Airborne Isolation until 3 AFB are negative. 1 AFB negative so far Continue Rocephin and zithromax Follow up 2 more AFB ( sent ) 2. Sepsis secondary to multifocal pneumonia with Fever/Tachycardia/Left shift blood cx with no growth On Ceftrixone 1gm and Azithromycin 500mg. 3. Hypokalemia replaced 4.DVT prophylaxis Lovenox 40 mg SC, daily
--- NOTE | 2017-11-18 17:56 | CP.PCM.PN ---
Subjective - Date & Time of Evaluation Date of Evaluation: 11/18/17 - Subjective Subjective: F/U Multifocal PNA no AD , no GARIBAY Objective - Vital Signs/Intake and Output Vital Signs (last 24 hours): Temp Pulse Resp BP Pulse Ox 98.3 F 71 20 125/85 96 11/18/17 16:33 11/18/17 16:33 11/18/17 16:33 11/18/17 16:33 11/18/17 16:33 Intake and Output: 11/18/17 11/18/17 06:59 18:59 Intake Total 550 Output Total 400 Balance 150 - Medications Medications: Current Medications Acetaminophen (Tylenol 325mg Tab) 650 mg PO Q4 PRN PRN Reason: Fever >100.4 F Last Admin: 11/16/17 00:09 Dose: 650 mg Acetaminophen (Tylenol 325mg Tab) 650 mg PO Q4 PRN PRN Reason: Pain, Mild (1-3) Albuterol/Ipratropium (Duoneb 3 Mg/0.5 Mg (3 Ml) Ud) 3 ml INH RQ6 PRN PRN Reason: Shortness of Breath Last Admin: 11/18/17 03:15 Dose: 3 ml Enoxaparin Sodium (Lovenox) 40 mg SC DAILY TRICIA PRN Reason: Protocol Last Admin: 11/18/17 09:29 Dose: 40 mg Lactated Ringer's (Lactated Ringer's) 1,000 mls @ 1,000 mls/hr IV .Q1H [facility] Last Admin: 11/15/17 05:24 Dose: 1,000 mls/hr Ceftriaxone Sodium 1 gm/ (Sodium Chloride) 100 mls @ 100 mls/hr IVPB DAILY TRICIA PRN Reason: Protocol Last Admin: 11/18/17 09:29 Dose: 100 mls/hr Azithromycin 500 mg/ Sodium (Chloride) 250 mls @ 250 mls/hr IVPB DAILY TRICIA PRN Reason: Protocol Last Admin: 11/18/17 09:30 Dose: 250 mls/hr Ibuprofen (Motrin Tab) 400 mg PO Q4 PRN PRN Reason: Pain, moderate (4-7) Ondansetron HCl (Zofran Inj) 4 mg IVP Q4 PRN PRN Reason: Nausea/Vomiting - Labs Labs: 11/17/17 06:34 11/17/17 06:34 - Constitutional Appears: No Acute Distress - Head Exam Head Exam: NORMAL INSPECTION - Eye Exam Eye Exam: PERRL - ENT Exam ENT Exam: Normal Exam - Neck Exam Neck Exam: Normal Inspection - Respiratory Exam Respiratory Exam: Decreased Breath Sounds (at bases) - Cardiovascular Exam Cardiovascular Exam: REGULAR RHYTHM - GI/Abdominal Exam GI & Abdominal Exam: Soft, Normal Bowel Sounds - Extremities Exam Extremities Exam: Normal Inspection - Back Exam Back Exam: NORMAL INSPECTION - Neurological Exam Neurological Exam: Alert, Oriented x3. absent: Motor Sensory Deficit - Psychiatric Exam Psychiatric exam: Normal Affect, Normal Mood - Skin Skin Exam: Normal Color, Warm Assessment and Plan (1) Multifocal pneumonia Status: Acute - Assessment and Plan (Free Text) Plan: continue Zithromax , Rocephin , respiratory isolation , f/u sputum AFB
[2017-11-19 06:08] LABS: HEMOGLOBIN 15.4 g/dL (12.0-18.0); MEAN CELL VOLUME 83.8 fl (80.0-94.0); MEAN CORPUSCULAR HEMOGLOBIN 28.4 pg (27.0-31.0); MEAN CORPUSCULAR HGB CONC 33.9 g/dL (33.0-37.0); RBC 5.41 Mil/uL (4.40-5.90); RED CELL DISTRIBUTION WIDTH 12.6 % (11.5-14.5); WHITE BLOOD COUNT 9.7 K/uL (4.8-10.8)
[2017-11-19 06:14] LABS: BLOOD UREA NITROGEN 13 mg/dl (9-20); GFR AFRICAN-AMERICAN > 60; GFR NON-AFRICAN AMERICAN > 60
--- NOTE | 2017-11-19 10:22 | CP.PCM.PN ---
Subjective - Date & Time of Evaluation Date of Evaluation: 11/19/17 Time of Evaluation: 09:00 - Subjective Subjective: Pt seen and examined at bedside. Reports SOB when walking to the restroom. Denies dizziness, palpitations, cough, CP/N/V, subjective fevers. Objective - Vital Signs/Intake and Output Vital Signs (last 24 hours): Temp Pulse Resp BP Pulse Ox 98.5 F 72 18 118/74 95 11/19/17 08:00 11/19/17 08:00 11/19/17 08:00 11/19/17 08:00 11/19/17 08:00 - Medications Medications: Current Medications Acetaminophen (Tylenol 325mg Tab) 650 mg PO Q4 PRN PRN Reason: Fever >100.4 F Last Admin: 11/16/17 00:09 Dose: 650 mg Acetaminophen (Tylenol 325mg Tab) 650 mg PO Q4 PRN PRN Reason: Pain, Mild (1-3) Albuterol/Ipratropium (Duoneb 3 Mg/0.5 Mg (3 Ml) Ud) 3 ml INH RQ6 PRN PRN Reason: Shortness of Breath Last Admin: 11/18/17 03:15 Dose: 3 ml Enoxaparin Sodium (Lovenox) 40 mg SC DAILY TRICIA PRN Reason: Protocol Last Admin: 11/18/17 09:29 Dose: 40 mg Lactated Ringer's (Lactated Ringer's) 1,000 mls @ 1,000 mls/hr IV .Q1H [facility] Last Admin: 11/15/17 05:24 Dose: 1,000 mls/hr Ceftriaxone Sodium 1 gm/ (Sodium Chloride) 100 mls @ 100 mls/hr IVPB DAILY TRICIA PRN Reason: Protocol Last Admin: 11/18/17 09:29 Dose: 100 mls/hr Azithromycin 500 mg/ Sodium (Chloride) 250 mls @ 250 mls/hr IVPB DAILY TRICIA PRN Reason: Protocol Last Admin: 11/18/17 09:30 Dose: 250 mls/hr Ibuprofen (Motrin Tab) 400 mg PO Q4 PRN PRN Reason: Pain, moderate (4-7) Ondansetron HCl (Zofran Inj) 4 mg IVP Q4 PRN PRN Reason: Nausea/Vomiting - Labs Labs: 11/19/17 04:25 11/19/17 04:25 - Constitutional Appears: Well, No Acute Distress - Eye Exam Eye Exam: EOMI - ENT Exam ENT Exam: Mucous Membranes Moist - Neck Exam Neck Exam: Full ROM - Respiratory Exam Respiratory Exam: Decreased Breath Sounds (On R compared to L), NORMAL BREATHING PATTERN. absent: Wheezes Additional comments: NC on 2L - Cardiovascular Exam Cardiovascular Exam: REGULAR RHYTHM, +S1, +S2. absent: Murmur - GI/Abdominal Exam GI & Abdominal Exam: Soft, Normal Bowel Sounds. absent: Tenderness - Neurological Exam Neurological Exam: Alert, Awake, CN II-XII Intact, Oriented x3 - Psychiatric Exam Psychiatric exam: Normal Affect, Normal Mood Assessment and Plan - Assessment and Plan (Free Text) Plan: 27 yo M with no significant pmhx admitted for multifocal pneumonia 1. Acute pneumonia - Multifocal: possible CAP, r/o TB - CT Chest showed dense consolidation in RUL and infiltrate in RLL, small infiltrate on LLL, and splenomegaly. - CXR findings more consistent with multi-focal pneumonia. - Influenza negative; HIV: neg; Quantiferon Gold: neg - Pulmonology, Dr Hillman: f/u AFB - Continue airborne isolation until AFB are negative X3 - Continue IV Ceftriaxone 1gm and Azithromycin 500mg - Blood cx: 11/19/2017 Prelim: no growth after 4 days - Sputum For AFB x3: neg x1; pending 2 (sent) 2. Sepsis - 2/2 multifocal pneumonia - Blood cx: 11/19/2017 Prelim: no growth after 4 days - Continue Ceftrixone 1gm and Azithromycin 500mg. - Monitor vital signs 3. Hypokalemia -replaced -M.4 4. DVT prophylaxis - Lovenox 40 mg SC, daily
[2017-11-19] MEDS: Enoxaparin 40 mg Syringe SC SCH (10:56)
[2017-11-19] MEDS: Azithromycin 500 MG in Sodium Chloride 0.9% 250 ML IVPB SCH (10:56)
--- NOTE | 2017-11-19 16:08 | CP.PCM.PN ---
Subjective - Date & Time of Evaluation Date of Evaluation: 11/19/17 Time of Evaluation: 13:20 - Subjective Subjective: F/U Multifocal PNA no AD , N/C , no SOB , no GARIBAY , no cough Objective - Vital Signs/Intake and Output Vital Signs (last 24 hours): Temp Pulse Resp BP Pulse Ox 98.8 F 81 20 101/68 96 11/19/17 15:50 11/19/17 15:50 11/19/17 15:50 11/19/17 15:50 11/19/17 15:50 - Medications Medications: Current Medications Acetaminophen (Tylenol 325mg Tab) 650 mg PO Q4 PRN PRN Reason: Fever >100.4 F Last Admin: 11/16/17 00:09 Dose: 650 mg Acetaminophen (Tylenol 325mg Tab) 650 mg PO Q4 PRN PRN Reason: Pain, Mild (1-3) Albuterol/Ipratropium (Duoneb 3 Mg/0.5 Mg (3 Ml) Ud) 3 ml INH RQ6 PRN PRN Reason: Shortness of Breath Last Admin: 11/18/17 03:15 Dose: 3 ml Enoxaparin Sodium (Lovenox) 40 mg SC DAILY TRICIA PRN Reason: Protocol Last Admin: 11/19/17 10:56 Dose: Not Given Lactated Ringer's (Lactated Ringer's) 1,000 mls @ 1,000 mls/hr IV .Q1H [facility] Last Admin: 11/15/17 05:24 Dose: 1,000 mls/hr Ceftriaxone Sodium 1 gm/ (Sodium Chloride) 100 mls @ 100 mls/hr IVPB DAILY TRICIA PRN Reason: Protocol Last Admin: 11/19/17 10:55 Dose: 100 mls/hr Azithromycin 500 mg/ Sodium (Chloride) 250 mls @ 250 mls/hr IVPB DAILY TRICIA PRN Reason: Protocol Last Admin: 11/19/17 10:56 Dose: 250 mls/hr Ibuprofen (Motrin Tab) 400 mg PO Q4 PRN PRN Reason: Pain, moderate (4-7) Ondansetron HCl (Zofran Inj) 4 mg IVP Q4 PRN PRN Reason: Nausea/Vomiting - Labs Labs: 11/19/17 04:25 11/19/17 04:25 - Constitutional Appears: No Acute Distress - Head Exam Head Exam: NORMAL INSPECTION - Eye Exam Eye Exam: PERRL - ENT Exam ENT Exam: Normal Exam - Neck Exam Neck Exam: Normal Inspection - Respiratory Exam Respiratory Exam: Decreased Breath Sounds (at bases) - Cardiovascular Exam Cardiovascular Exam: REGULAR RHYTHM - GI/Abdominal Exam GI & Abdominal Exam: Soft, Normal Bowel Sounds - Extremities Exam Extremities Exam: Normal Inspection - Back Exam Back Exam: NORMAL INSPECTION - Neurological Exam Neurological Exam: Alert, Oriented x3. absent: Motor Sensory Deficit - Psychiatric Exam Psychiatric exam: Normal Affect, Normal Mood - Skin Skin Exam: Normal Color, Warm Assessment and Plan (1) Multifocal pneumonia Status: Acute - Assessment and Plan (Free Text) Plan: 2nd sputum AFB neg , afebril , wbc 9.7 , continue Zithromax , Rocephin , f/u CXR am
--- NOTE | 2017-11-20 07:28 | CP.PCM.DIS ---
<Ben Donahue - Last Filed: 11/20/17 07:42> Provider - Provider Date of Admission: 11/15/17 04:31 Attending physician: Chris Riley Time Spent in preparation of Discharge (in minutes): 25 Hospital Course - Lab Results Lab Results: Micro Results 11/15/17 01:40 Blood Blood Culture - Final NO GROWTH AFTER 5 DAYS 11/15/17 01:40 Blood Gram Stain - Final TEST NOT PERFORMED 11/15/17 09:10 Other: Please Indicate Mycobacterial Culture - Preliminary 11/17/17 09:16 Other: Please Indicate Mycobacterial Culture - Preliminary 11/15/17 02:10 Blood Blood Culture - Preliminary NO GROWTH AFTER 4 DAYS 11/16/17 08:14 Naris MRSA Culture (Admit) - Final MRSA NOT DETECTED 11/15/17 21:10 Naris MRSA Culture (Admit) - Final MRSA NOT DETECTED 11/15/17 08:42 Other: Please Indicate Mycobacterial Culture - Preliminary 11/15/17 07:08 Sputum Gram Stain - Final 11/15/17 07:08 Sputum Sputum Culture - Final Most Recent Lab Values WBC 9.7 K/uL (4.8-10.8) 11/19/17 04:25 RBC 5.41 Mil/uL (4.40-5.90) 11/19/17 04:25 Hgb 15.4 g/dL (12.0-18.0) 11/19/17 04:25 Hct 45.3 % (35.0-51.0) 11/19/17 04:25 MCV 83.8 fl (80.0-94.0) 11/19/17 04:25 MCH 28.4 pg (27.0-31.0) 11/19/17 04:25 MCHC 33.9 g/dL (33.0-37.0) 11/19/17 04:25 RDW 12.6 % (11.5-14.5) 11/19/17 04:25 Plt Count 379 K/uL (130-400) 11/19/17 04:25 MPV 7.9 fl (7.2-11.7) 11/15/17 11:33 Neut % (Auto) 86.7 % (50.0-75.0) H 11/15/17 11:33 Lymph % (Auto) 10.7 % (20.0-40.0) L 11/15/17 11:33 [place] % (Auto) 2.5 % (0.0-10.0) 11/15/17 11:33 Eos % (Auto) 0.0 % (0.0-4.0) 11/15/17 11:33 Baso % (Auto) 0.1 % (0.0-2.0) 11/15/17 11: Neut # (Auto) 7.9 K/uL (1.8-7.0) H 11/15/17 11:33 Lymph # (Auto) 1.0 K/uL (1.0-4.3) 11/15/17 11: [place] # (Auto) 0.2 K/uL (0.0-0.8) 11/15/17 11: Eos # (Auto) 0.0 K/uL (0.0-0.7) 11/15/17 11: Baso # (Auto) 0.0 K/uL (0.0-0.2) 11/15/17 11:33 Neutrophils % (Manual) 67 % (42-75) 11/15/17 00:57 Band Neutrophils % 15 % (0-2) H* 11/15/17 00:57 Lymphocytes % (Manual) 13 % (20-50) L 11/15/17 00:57 Reactive Lymphs % 2 % (0-0) H 11/15/17 00:57 Monocytes % (Manual) 3 % (0-10) 11/15/17 00:57 Platelet Estimate Normal (NORMAL) 11/15/17 00:57 Anisocytosis (manual) Slight 11/15/17 00:57 Tear Drop Cells Slight 11/15/17 00:57 Ovalocytes Slight 11/15/17 00:57 ESR 63 mm/hr (0-15) H 11/16/17 07:12 pO2 41 mm/Hg (30-55) 11/15/17 05:10 VBG pH 7.49 (7.32-7.43) H 11/15/17 05:10 VBG pCO2 32 mmHg (40-60) L 11/15/17 05:10 VBG HCO3 25.8 mmol/L 11/15/17 05:10 VBG Total CO2 25.4 mmol/L (22-28) 11/15/17 05:10 VBG O2 Sat (Calc) 87.5 % (40-65) H 11/15/17 05:10 VBG Base Excess 1.7 mmol/L (0.0-2.0) 11/15/17 05:10 VBG Potassium 3.4 mmol/L (3.6-5.2) L 11/15/17 05:10 Sodium 133.0 mmol/L (132-148) 11/15/17 05:10 Chloride 102.0 mmol/L (98-107) 11/15/17 05:10 Glucose 143 mg/dL (75-110) H 11/15/17 05:10 Lactate 1.5 mmol/L (0.7-2.1) 11/15/17 05:10 FiO2 21.0 % 11/15/17 05:10 Sodium 142 mmol/l (132-148) 11/19/17 04:25 Potassium 4.0 MMOL/L (3.6-5.0) 11/19/17 04:25 Chloride 104 mmol/L (98-107) 11/19/17 04:25 Carbon Dioxide 24 mmol/L (22-30) 11/19/17 04:25 Anion Gap 18 (10-20) 11/19/17 04:25 BUN 13 mg/dl (9-20) 11/19/17 04:25 Creatinine 0.7 mg/dl (0.8-1.5) L 11/19/17 04:25 Est GFR ( Amer) > 60 11/19/17 04:25 Est GFR (Non-Af Amer) > 60 11/19/17 04:25 Random Glucose 110 mg/dL (75-110) 11/19/17 04:25 Lactic Acid 1.2 MMOL/L (0.7-2.1) 11/15/17 01:10 Calcium 9.0 mg/dL (8.4-10.2) 11/19/17 04:25 Magnesium 2.4 MG/DL (1.6-2.3) H 11/17/17 06:34 Total Bilirubin 0.7 mg/dl (0.2-1.3) 11/17/17 06:34 AST 51 U/L (17-59) 11/17/17 06:34 ALT 47 U/L (21-72) 11/17/17 06:34 Alkaline Phosphatase 65 U/L (38-126) 11/17/17 06:34 Total Protein 8.2 G/DL (6.3-8.2) 11/17/17 06:34 Albumin 4.0 g/dL (3.5-5.0) 11/17/17 06:34 Globulin 4.3 gm/dL (2.2-3.9) H 11/17/17 06:34 Albumin/Globulin Ratio 0.9 (1.0-2.1) L 11/17/17 06:34 Venous Blood Potassium 3.4 mmol/L (3.6-5.2) L 11/15/17 05:10 HIV 1&2 Antibody Screen Negative (NEGATIVE) 11/15/17 11:33 Influenza Typ A,B (EIA) Negative for flu a/b (NEGATIVE) 11/15/17 14:57 Aspergillus flavus Ab Negative (Negative) 11/15/17 11:33 Aspergill fumigatus Ab Negative (Negative) 11/15/17 11:33 Aspergillus niger Ab Negative (Negative) 11/15/17 11:33 TB Test (QFT) Nil 0.11 IU/mL 11/15/17 11:33 TB Test Mitogen - Nil 9.36 IU/mL 11/15/17 11:33 TB Test TB - Nil 0.01 IU/mL 11/15/17 11:33 TB Test (QFT) Negative (Negative) 11/15/17 11:33 - Hospital Course Hospital Course: 27 yo M with no significant pmhx presented with multifocal pneumonia. TB ruled out. Abx: ceftriaxone 1 gm iv and Azithromycin 500 mg iv. Pt stable. To be dc with appt to PCP in 1 week. Discharge Exam - Head Exam Head Exam: NORMAL INSPECTION Discharge Plan - Discharge Medications Prescriptions: Levofloxacin [Levaquin] 750 mg PO DAILY #7 tablet - Follow Up Plan Condition: SERIOUS Disposition: HOME/ ROUTINE Instructions: Pneumonia, Adult (DC), Sepsis, Adult (DC) Additional Instructions: follow up appt sunday11/27/17 at 140pm with Referrals: [facility] [Outside] <Adela Neil - Last Filed: 11/20/17 13:48> Provider - Provider Date of Admission: 11/15/17 04:31 Attending physician: Chris Riley Diagnosis - Discharge Diagnosis (1) Multifocal pneumonia Status: Acute Priority: High Comment: prob bacterial. PTB ruled out (2) Sepsis Status: Acute Comment: present on admission Hospital Course - Lab Results Lab Results: Micro Results 11/15/17 02:10 Blood Blood Culture - Final NO GROWTH AFTER 5 DAYS 11/15/17 02:10 Blood Gram Stain - Final TEST NOT PERFORMED 11/15/17 01:40 Blood Blood Culture - Final NO GROWTH AFTER 5 DAYS 11/15/17 01:40 Blood Gram Stain - Final TEST NOT PERFORMED 11/15/17 09:10 Other: Please Indicate Mycobacterial Culture - Preliminary 11/17/17 09:16 Other: Please Indicate Mycobacterial Culture - Preliminary 11/16/17 08:14 Naris MRSA Culture (Admit) - Final MRSA NOT DETECTED 11/15/17 21:10 Naris MRSA Culture (Admit) - Final MRSA NOT DETECTED 11/15/17 08:42 Other: Please Indicate Mycobacterial Culture - Preliminary 11/15/17 07:08 Sputum Gram Stain - Final 11/15/17 07:08 Sputum Sputum Culture - Final Most Recent Lab Values WBC 9.7 K/uL (4.8-10.8) 11/19/17 04:25 RBC 5.41 Mil/uL (4.40-5.90) 11/19/17 04:25 Hgb 15.4 g/dL (12.0-18.0) 11/19/17 04:25 Hct 45.3 % (35.0-51.0) 11/19/17 04:25 MCV 83.8 fl (80.0-94.0) 11/19/17 04:25 MCH 28.4 pg (27.0-31.0) 11/19/17 04:25 MCHC 33.9 g/dL (33.0-37.0) 11/19/17 04:25 RDW 12.6 % (11.5-14.5) 11/19/17 04:25 Plt Count 379 K/uL (130-400) 11/19/17 04:25 MPV 7.9 fl (7.2-11.7) 11/15/17 11:33 Neut % (Auto) 86.7 % (50.0-75.0) H 11/15/17 11:33 Lymph % (Auto) 10.7 % (20.0-40.0) L 11/15/17 11:33 [place] % (Auto) 2.5 % (0.0-10.0) 11/15/17 11:33 Eos % (Auto) 0.0 % (0.0-4.0) 11/15/17 11:33 Baso % (Auto) 0.1 % (0.0-2.0) 11/15/17 11:33 Neut # (Auto) 7.9 K/uL (1.8-7.0) H 11/15/17 11:33 Lymph # (Auto) 1.0 K/uL (1.0-4.3) 11/15/17 11:33 [place] # (Auto) 0.2 K/uL (0.0-0.8) 11/15/17 11:33 Eos # (Auto) 0.0 K/uL (0.0-0.7) 11/15/17 11:33 Baso # (Auto) 0.0 K/uL (0.0-0.2) 11/15/17 11:33 Neutrophils % (Manual) 67 % (42-75) 11/15/17 00:57 Band Neutrophils % 15 % (0-2) H* 11/15/17 00:57 Lymphocytes % (Manual) 13 % (20-50) L 11/15/17 00:57 Reactive Lymphs % 2 % (0-0) H 11/15/17 00:57 Monocytes % (Manual) 3 % (0-10) 11/15/17 00:57 Platelet Estimate Normal (NORMAL) 11/15/17 00:57 Anisocytosis (manual) Slight 11/15/17 00:57 Tear Drop Cells Slight 11/15/17 00:57 Ovalocytes Slight 11/15/17 00:57 ESR 63 mm/hr (0-15) H 11/16/17 07:12 pO2 41 mm/Hg (30-55) 11/15/17 05:10 VBG pH 7.49 (7.32-7.43) H 11/15/17 05:10 VBG pCO2 32 mmHg (40-60) L 11/15/17 05:10 VBG HCO3 25.8 mmol/L 11/15/17 05:10 VBG Total CO2 25.4 mmol/L (22-28) 11/15/17 05:10 VBG O2 Sat (Calc) 87.5 % (40-65) H 11/15/17 05:10 VBG Base Excess 1.7 mmol/L (0.0-2.0) 11/15/17 05:10 VBG Potassium 3.4 mmol/L (3.6-5.2) L 11/15/17 05:10 Sodium 133.0 mmol/L (132-148) 11/15/17 05:10 Chloride 102.0 mmol/L (98-107) 11/15/17 05:10 Glucose 143 mg/dL (75-110) H 11/15/17 05:10 Lactate 1.5 mmol/L (0.7-2.1) 11/15/17 05:10 FiO2 21.0 % 11/15/17 05:10 Sodium 142 mmol/l (132-148) 11/19/17 04:25 Potassium 4.0 MMOL/L (3.6-5.0) 11/19/17 04:25 Chloride 104 mmol/L (98-107) 11/19/17 04:25 Carbon Dioxide 24 mmol/L (22-30) 11/19/17 04:25 Anion Gap 18 (10-20) 11/19/17 04:25 BUN 13 mg/dl (9-20) 11/19/17 04:25 Creatinine 0.7 mg/dl (0.8-1.5) L 11/19/17 04:25 Est GFR ( Amer) > 60 11/19/17 04:25 Est GFR (Non-Af Amer) > 60 11/19/17 04:25 Random Glucose 110 mg/dL (75-110) 11/19/17 04:25 Lactic Acid 1.2 MMOL/L (0.7-2.1) 11/15/17 01:10 Calcium 9.0 mg/dL (8.4-10.2) 11/19/17 04:25 Magnesium 2.4 MG/DL (1.6-2.3) H 11/17/17 06:34 Total Bilirubin 0.7 mg/dl (0.2-1.3) 11/17/17 06:34 AST 51 U/L (17-59) 11/17/17 06:34 ALT 47 U/L (21-72) 11/17/17 06:34 Alkaline Phosphatase 65 U/L (38-126) 11/17/17 06:34 Total Protein 8.2 G/DL (6.3-8.2) 11/17/17 06:34 Albumin 4.0 g/dL (3.5-5.0) 11/17/17 06:34 Globulin 4.3 gm/dL (2.2-3.9) H 11/17/17 06:34 Albumin/Globulin Ratio 0.9 (1.0-2.1) L 11/17/17 06:34 Venous Blood Potassium 3.4 mmol/L (3.6-5.2) L 11/15/17 05:10 HIV 1&2 Antibody Screen Negative (NEGATIVE) 11/15/17 11:33 Influenza Typ A,B (EIA) Negative for flu a/b (NEGATIVE) 11/15/17 14:57 Aspergillus flavus Ab Negative (Negative) 11/15/17 11:33 Aspergill fumigatus Ab Negative (Negative) 11/15/17 11:33 Aspergillus niger Ab Negative (Negative) 11/15/17 11:33 TB Test (QFT) Nil 0.11 IU/mL 11/15/17 11:33 TB Test Mitogen - Nil 9.36 IU/mL 11/15/17 11:33 TB Test TB - Nil 0.01 IU/mL 11/15/17 11:33 TB Test (QFT) Negative (Negative) 11/15/17 11:33 Attending/Attestation - Attestation I have personally seen and examined this patient.: Yes I have fully participated in the care of the patient.: Yes I have reviewed all pertinent clinical information, including history, physical exam and plan: Yes Notes (Text): Sepsis (POA) sec to Multifocal Bacterial Pneumonia - CT of the chest showed multifocal PNA , RUL consolidation. IV abx started. Pulmonary consulted AFB x 3 negative fever, leukocytosis resolved. pt narkedly clinically improved Rpt CXR showed improvement Blood c/s : negative - d/c home on PO LevAQUIN
[2017-11-20] MEDS: Azithromycin 500 MG in Sodium Chloride 0.9% 250 ML IVPB SCH (08:16)
[2017-11-20] MEDS: Enoxaparin 40 mg Syringe SC SCH (08:17)
[2017-11-20 08:32] VITALS: RESP 20; TEMP 98.3; O2SAT 95
--- NOTE | 2017-11-20 10:38 | RAD ---
HISTORY: SEPSIS, PNA, R/O TB COMPARISON: Chest radiograph dated 11/15/2017. TECHNIQUE: Chest PA and lateral FINDINGS: LUNGS: Improved aeration of right upper lobe infiltrate with faint residual opacity. Similar appearance of medial right lower lobe and left lower lobe patchy infiltrates. PLEURA: No significant pleural effusion identified. No pneumothorax apparent. CARDIOVASCULAR: Normal. OSSEOUS STRUCTURES: Unchanged. VISUALIZED UPPER ABDOMEN: Normal. OTHER FINDINGS: None. IMPRESSION: Improved aeration of dense right upper lobe infiltrate with faint residual opacity. Similar appearance of medial right lower lobe and left lower lobe patchy infiltrates.
[2017-11-20 12:21] VITALS: BP 113/66; PULSE 81
== END 2017-11-20 14:00 | disposition home or self-care (01) | DRG 584 ==
LOC: H.ER 21:43 → H.ERHOLD 11-15 04:31 → H.ICU/CCU 11-15 11:32 → H.TEL 11-16 23:10
PROVIDERS: ADMIT Internal Medicine; ATTEND Internal Medicine
DX: A41.9 Sepsis, unspecified organism (principal); J15.9 Unspecified bacterial pneumonia; E87.6 Hypokalemia; F17.210 Nicotine dependence, cigarettes, uncomplicated

== ENCOUNTER 2018-09-08 20:01 | Emergency (ER) | payer MEDICAID ==
[2018-09-08 20:47] VITALS: O2SAT 98
--- NOTE | 2018-09-08 20:55 | ED PDOC ---
HPI: General Adult Time Seen by Provider: 09/08/18 20:49 Chief Complaint (Nursing): Cough, Cold, Congestion Chief Complaint (Provider): Throat Pain, Fever, Chills History Per: Patient History/Exam Limitations: no limitations Onset/Duration Of Symptoms: Days (x3) Current Symptoms Are (Timing): Still Present Additional Complaint(s): 28 year old male presents to the ED for evaluation of 10/10 throat pain for the past three days associated with chills, fever, cough, and congestion. Patient reports taking Ibuprofen at home with minimal relief of throat pain. Pt states h is cough is mild and throat pain is the worst. Pt admitted for pneumonia in the past and was concerned. PT states he feels sick but not the way he did when he was admitted. PMD: none provided Past Medical History Reviewed: Historical Data, Nursing Documentation, Vital Signs Vital Signs: Last Vital Signs Temp 100.1 F H 09/08/18 20:45 Pulse 100 H 09/08/18 20:45 Resp 20 09/08/18 20:45 BP 130/81 09/08/18 20:45 Pulse Ox 98 09/08/18 20:45 - Medical History PMH: No Chronic Diseases Denies: Chronic Kidney Disease - Surgical History Surgical History: No Surg Hx - Family History Family History: States: Unknown Family Hx - Immunization History Hx Tetanus Toxoid Vaccination: No Hx Influenza Vaccination: No Hx Pneumococcal Vaccination: No - Home Medications Home Medications: Ambulatory Orders Medication Instructions Recorded Acetaminophen [Tylenol 325mg tab] 650 mg PO Q4 PRN 11/15/17 Ibuprofen [Advil] 400 mg PO Q6 PRN 11/15/17 Levofloxacin [Levaquin] 750 mg PO DAILY #7 tablet 11/19/17 Azithromycin [Zithromax] 250 mg PO DAILY #4 tab 09/08/18 Promethazine HCl/Codeine 10 ml PO Q8H PRN #150 ml 09/08/18 [Prometh-Codein 6.25-10 mg/5 ml] - Allergies Allergies/Adverse Reactions: Allergies Allergy/AdvReac Type Severity Reaction Status Date / Time No Known Allergies Allergy Verified 11/14/17 22:00 Review of Systems ROS Statement: Except As Marked, All Systems Reviewed And Found Negative Constitutional: Positive for: Fever, Chills ENT: Positive for: Nose Congestion, Throat Pain Respiratory: Positive for: Cough Physical Exam - Reviewed Nursing Documentation Reviewed: Yes Vital Signs Reviewed: Yes - Physical Exam Appears: Positive for: No Acute Distress Skin: Positive for: Normal Color Eye Exam: Positive for: Normal appearance ENT: Positive for: Tonsillar Exudate Cardiovascular/Chest: Positive for: Regular Rate, Rhythm Respiratory: Positive for: Normal Breath Sounds. Negative for: Respiratory Distress - ECG O2 Sat by Pulse Oximetry: 98 (RA) Pulse Ox Interpretation: Normal Medical Decision Making Medical Decision Making: Time: 2056 Initial Impression: strep throat Initial Plan: --Rocephin 1gm IM --Tylenol 600mg PO --Azithromycin 500mg PO Scribe Attestation: Documented by Fani Stacy, acting as a scribe for Gia Hauser PA-C Provider Scribe Attestation: All medical record entries made by the Scribe were at my direction and personally dictated by me. I have reviewed the chart and agree that the record accurately reflects my personal performance of the history, physical exam, medical decision making, and the department course for this patient. I have also personally directed, reviewed, and agree with the discharge instructions and disposition. Disposition - Clinical Impression Clinical Impression: Acute pharyngitis - Disposition Disposition: Routine/Home Disposition Time: 22:00 Condition: STABLE Prescriptions: Azithromycin [Zithromax] 250 mg PO DAILY #4 tab Promethazine HCl/Codeine [Prometh-Codein 6.25-10 mg/5 ml] 10 ml PO Q8H PRN #150 ml PRN Reason: Cough Instructions: Bacterial Upper Respiratory Infection, Adult Forms: [facility] ([place]), [facility] ED School/Work Excuse
[2018-09-08] MEDS ORDERED: cefTRIAXone (Rocephin) 1 gm Inj IM STA (20:59)
[2018-09-08 22:10] VITALS: BP 131/78; PULSE 91; RESP 16; TEMP 99.8
== END 2018-09-08 22:09 | disposition home or self-care (01) ==
LOC: H.ER 20:01
DX: J02.9 Acute pharyngitis, unspecified (principal)
CPT/HCPCS: 96372; 99282; J0696